=== PATIENT | female | born 1990 | race Caucasian/White ===

== ENCOUNTER 2019-12-02 14:46 | Emergency (ER) | payer OTHER ==
[2019-12-02 16:02] LABS: Absolute Lymphocytes (CBC) 1.1 K/uL (0.7-4.9); Basophils % 0.5 % (0-1.3); Hematocrit 36.3 % (36.0-45.0); Lymphocytes % 25.1 % (15.3-44.8); MPV 7.5 fL (7.6-11.3); RBC Red Blood Cell Count 4.06 M/uL (3.86-4.86)
[2019-12-02] MEDS ORDERED: DIPHENHYDRAMINE 50 MG/ML VIAL ONE (16:07)
[2019-12-02] MEDS ORDERED: FAMOTIDINE 20 MG/2 ML VIAL IV ONE (16:07)
[2019-12-02] MEDS ORDERED: METHYLPREDNISOLONE 125 MG INJ ONE (16:07)
[2019-12-02] MEDS ORDERED: NA CHLORIDE 0.9% 1,000 ML ONE (16:07)
[2019-12-02 16:27] LABS: Potassium 3.5 mmol/L (3.5-5.1)
[2019-12-02 16:46] LABS: Protime INR 1.13
--- NOTE | 2019-12-02 17:05 | ER ---
Nurse's Notes [facility] Name: Rachel Santiago Age: 29 yrs Sex: Female : 1990 Arrival Date: 12/02/2019 Time: 14:47 Bed 14 Private MD: Diagnosis: Rash and other nonspecific skin eruption Presentation: 12/01 14:55 Chief complaint: Chief complaint: Chief complaint: Patient states: "It started with a aa5 possible bite to my left foot and now I got this rash all over my body last night". Pt denies SOB. Pt states "I took clindamycin for my foot today but I already had the rash". Coronavirus screen: Client denies travel out of the [place] in the last 14 days. At this time, the client does not indicate any symptoms associated with coronavirus-19. Ebola Screen: Patient negative for fever greater than or equal to 101.5 degrees Fahrenheit, and additional compatible Ebola Virus Disease symptoms. Onset: The symptoms/episode began/occurred last night. Anaphylaxis evaluation, no signs or symptoms of anaphylaxis were noted. Initial Sepsis Screen: Does the patient meet any 2 criteria? No. Patient's initial sepsis screen is negative. Does the patient have a suspected source of infection? No. Patient's initial sepsis screen is negative. Risk Assessment: Do you want to hurt yourself or someone else? Patient reports no desire to harm self or others. Onset of symptoms was November 2019. 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 - Social history:: Smoking status: Patient denies any tobacco usage or history of. Screenin:05 Abuse screen: Denies threats or abuse. Denies injuries from another. Nutritional ca1 screening: No deficits noted. Tuberculosis screening: No symptoms or risk factors identified. Fall Risk IV access (20 points). Assessment: 15:05 General: Appears in no apparent distress. comfortable, Behavior is calm, cooperative, ca1 appropriate for age. Pain: Complains of pain in chest, right arm, left arm and neck Quality of pain is described as burning, Pain began 1 day ago. Neuro: Level of Consciousness is awake, alert, obeys commands, Oriented to person, place, time, situation. Cardiovascular: Heart tones S1 S2 present Capillary refill < 3 seconds Patient's skin is warm and dry. Respiratory: Airway is patent Respiratory effort is even, unlabored, Respiratory pattern is regular, symmetrical, Breath sounds are clear bilaterally. GI: Abdomen is round non-distended, Bowel sounds present X 4 quads. Abd is soft and non tender X 4 quads. : No signs and/or symptoms were reported regarding the genitourinary system. EENT: No signs and/or symptoms were reported regarding the EENT system. Derm: Skin is intact, is healthy with good turgor, Skin is pink, warm \\T\\ dry. Rash noted that is red, raised, on chest, right arm, left arm, left leg and neck Bruising that is dark purple, on dorsum of left foot. Musculoskeletal: Circulation, motion, and sensation intact. Capillary refill < 3 seconds. 15:30 Reassessment: Dr. Quintana at bedside. ca1 16:14 Reassessment: Patient appears in no apparent distress at this time. Patient and/or ca1 family updated on plan of care and expected duration. Pain level reassessed. Patient is alert, oriented x 3, equal unlabored respirations, skin warm/dry/pink. 16:54 Reassessment: Patient appears in no apparent distress at this time. Patient and/or ca1 family updated on plan of care and expected duration. Pain level reassessed. Patient is alert, oriented x 3, equal unlabored respirations, skin warm/dry/pink. 17:22 Reassessment: Patient appears in no apparent distress at this time. Patient is alert, ca1 oriented x 3, equal unlabored respirations, skin warm/dry/pink. Vital Signs: 14:55 BP 126 / 74; Pulse 119; Resp 20 S; Temp 99.1(O); Pulse Ox 100% on R/A; Weight 63.5 kg aa5 (R); Height 5 ft. 5 in. (165.10 cm) (R); Pain 3/10; 16:00 BP 137 / 80; Pulse 111; Resp 16 S; Pulse Ox 100% on R/A; ca1 16:54 BP 139 / 79; Pulse 105; Resp 15 S; Pulse Ox 100% on R/A; ca1 14:55 Body Mass Index 23.30 (63.50 kg, 165.10 cm) aa5 ED Course: 14:47 Patient arrived in ED. as 14:54 Era Darling FNP-C [facility]. kb 14:54 Duy Quintana MD is Attending Physician. kb 14:54 Arm band placed on. aa5 14:57 Triage completed. aa5 15:05 Melody Shell, SHELLY is Primary Nurse. ca1 15:05 Patient has correct armband on for positive identification. Placed in gown. Bed in low ca1 position. Call light in reach. Side rails up X 1. Pulse ox on. NIBP on. Warm blanket given. 15:45 Initial lab(s) drawn, by me, sent to lab. Inserted saline lock: 20 gauge in right ca1 antecubital area, using aseptic technique. Blood collected. 16:15 No provider procedures requiring assistance completed. ca1 17:23 IV discontinued, intact, bleeding controlled, No redness/swelling at site. Pressure ca1 dressing applied. Administered Medications: 15:47 Drug: NS 0.9% 1000 ml Route: IV; Rate: 1000 ml; Site: right antecubital; ca1 16:56 Follow up: Response: No adverse reaction; IV Status: Completed infusion; IV Intake: ca1 1000ml 15:49 Drug: Pepcid 20 mg Route: IVP; Site: right antecubital; ca1 16:57 Follow up: Response: No adverse reaction ca1 15:52 Drug: SOLU-Medrol 125 mg Route: IVP; Site: right antecubital; ca1 16:57 Follow up: Response: No adverse reaction ca1 15:55 Drug: Benadryl 12.5 mg Route: IVP; Site: right antecubital; ca1 16:57 Follow up: Response: No adverse reaction ca1 Intake: 16:56 IV: 1000ml; Total: 1000ml. ca1 Outcome: 17:05 Discharge ordered by . kb 17:23 Discharged to home ambulatory. ca1 17:23 Condition: stable 17:23 Discharge instructions given to patient, Instructed on discharge instructions, follow up and referral plans. medication usage, Demonstrated understanding of instructions, follow-up care, medications, Prescriptions given X 1. 17:23 Patient left the ED. ca1 Signatures: Era Darling, Viola Linder as Mary Villegas, RN RN aa5 Melody Shell RN RN ca1
--- NOTE | 2019-12-02 17:05 | EDPHYS ---
Physician Documentation [facility] Name: Rachel Santiago Age: 29 yrs Sex: Female : 1990 Arrival Date: 12/02/2019 Time: 14:47 Bed 14 Private MD: ED Physician Duy Quintana HPI: 12/01 17:09 This 29 yrs old Female presents to ER via Ambulatory with complaints of kb Allergic Reaction. 17:09 The patient's rash thought to be caused by insect bite. The rash is located on the body kb diffusely. The rash can be described as macular, papular. Onset: The symptoms/episode began/occurred today. Associated signs and symptoms: Pertinent positives: itching. Severity of symptoms: At their worst the symptoms were moderate in the emergency department the symptoms are unchanged. The patient has not experienced similar symptoms in the past. The patient has been recently seen by a physician:. Pt reports she was bit by a spider yesterday and the area she was bitten has been getting more red and spreading. Today she developed a diffuse rash. States she was started on Clindamycin today, but rash started before her first dose. 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 - Social history:: Smoking status: Patient denies any tobacco usage or history of. ROS: 16:58 Constitutional: Negative for fever, chills, and weight loss, Cardiovascular: Negative kb for chest pain, palpitations, and edema, Respiratory: Negative for shortness of breath, cough, wheezing, and pleuritic chest pain, Abdomen/GI: Negative for abdominal pain, nausea, vomiting, diarrhea, and constipation, MS/Extremity: Negative for injury and deformity, Neuro: Negative for headache, weakness, numbness, tingling, and seizure. 16:58 Skin: Positive for rash, diffusely. Exam: 17:07 Constitutional: This is a well developed, well nourished patient who is awake, alert, kb and in no acute distress. Head/Face: Normocephalic, atraumatic. Chest/axilla: Normal chest wall appearance and motion. Nontender with no deformity. No lesions are appreciated. Cardiovascular: Regular rate and rhythm with a normal S1 and S2. No gallops, murmurs, or rubs. Normal PMI, no JVD. No pulse deficits. Respiratory: Lungs have equal breath sounds bilaterally, clear to auscultation and percussion. No rales, rhonchi or wheezes noted. No increased work of breathing, no retractions or nasal flaring. Abdomen/GI: Soft, non-tender, with normal bowel sounds. No distension or tympany. No guarding or rebound. No evidence of tenderness throughout. MS/ Extremity: Pulses equal, no cyanosis. Neurovascular intact. Full, normal range of motion. Neuro: Awake and alert, GCS 15, oriented to person, place, time, and situation. Cranial nerves II-XII grossly intact. Motor strength 5/5 in all extremities. Sensory grossly intact. Cerebellar exam normal. Normal gait. 17:07 Skin: rash can be described as macular, papular, and is diffusely located. 17:08 Skin: cellulitis, that is moderate, on the dorsum of left foot. kb Vital Signs: 14:55 BP 126 / 74; Pulse 119; Resp 20 S; Temp 99.1(O); Pulse Ox 100% on R/A; Weight 63.5 kg aa5 (R); Height 5 ft. 5 in. (165.10 cm) (R); Pain 3/10; 16:00 BP 137 / 80; Pulse 111; Resp 16 S; Pulse Ox 100% on R/A; ca1 16:54 BP 139 / 79; Pulse 105; Resp 15 S; Pulse Ox 100% on R/A; ca1 14:55 Body Mass Index 23.30 (63.50 kg, 165.10 cm) aa5 MDM: 14:58 Patient medically screened. kb 16:56 Data reviewed: vital signs, nurses notes. Data interpreted: Pulse oximetry: on room air kb is 100 %. Interpretation: normal. Counseling: I had a detailed discussion with the patient and/or guardian regarding: the historical points, exam findings, and any diagnostic results supporting the discharge/admit diagnosis, lab results, the need for outpatient follow up, a family practitioner, to return to the emergency department if symptoms worsen or persist or if there are any questions or concerns that arise at home. 12/01 15:39 Order name: CBC with Diff; Complete Time: 16:09 kb 12/01 15:39 Order name: Basic Metabolic Panel; Complete Time: 16:28 kb 12/01 15:39 Order name: Protime (+inr); Complete Time: 16:53 kb 12/01 15:39 Order name: Ptt, Activated; Complete Time: 16:53 kb 12/01 15:39 Order name: Fibrinogen; Complete Time: 16:53 kb 12/01 15:42 Order name: D-Dimer; Complete Time: 16:11 rn 12/01 15:39 Order name: IV Start; Complete Time: 16:09 kb Administered Medications: 15:47 Drug: NS 0.9% 1000 ml Route: IV; Rate: 1000 ml; Site: right antecubital; ca1 16:56 Follow up: Response: No adverse reaction; IV Status: Completed infusion; IV Intake: ca1 1000ml 15:49 Drug: Pepcid 20 mg Route: IVP; Site: right antecubital; ca1 16:57 Follow up: Response: No adverse reaction ca1 15:52 Drug: SOLU-Medrol 125 mg Route: IVP; Site: right antecubital; ca1 16:57 Follow up: Response: No adverse reaction ca1 15:55 Drug: Benadryl 12.5 mg Route: IVP; Site: right antecubital; ca1 16:57 Follow up: Response: No adverse reaction ca1 Disposition: 17:52 Co-signature as Attending Physician, Duy Quintana MD. rn Disposition: 12/02/19 17:05 Discharged to Home. Impression: Rash and other nonspecific skin eruption. - Condition is Stable. - Discharge Instructions: Insect Bite, [id number], Rash, [id number]. - Prescriptions for Prednisone 20 mg Oral Tablet - take 3 tablet by ORAL route once daily for 5 days Take 60mg (3 tabs) once daily for 5 days, then 40mg (2 tabs) once daily for 3 days, then 20mg (1 tab) once daily for 2 days for a total of 10 days; 23 tablet. - Medication Reconciliation Form, Thank You Letter, Antibiotic Education, Prescription Opioid Use form. - Follow up: Emergency Department; When: As needed; Reason: Worsening of condition. Follow up: Private Physician; When: 2 - 3 days; Reason: Recheck today's complaints, Continuance of care, Re-evaluation by your physician. Signatures: Dispatcher [employer] EDMS Darling Era, ASSISTANT PROFESSOR OF LIFE SCIENCES-C ASSISTANT PROFESSOR OF LIFE SCIENCES-CkDuy Richards MD MD rn Calderon, Audri RN RN aa5 Melody Shell RN RN ca1 Corrections: (The following items were deleted from the chart) 17:23 17:05 12/02/2019 17:05 Discharged to Home. Impression: Rash and other nonspecific skin ca1 eruption. Condition is Stable. Forms are Medication Reconciliation Form, Thank You Letter, Antibiotic Education, Prescription Opioid Use. Follow up: Emergency Department; When: As needed; Reason: Worsening of condition. Follow up: Private Physician; When: 2 - 3 days; Reason: Recheck today's complaints, Continuance of care, Re-evaluation by your physician. kb
[2019-12-02 18:07] VITALS: TEMP 99.1; O2SAT 100
[2019-12-02 18:10] VITALS: BP 139/79
--- OUTSIDE RECORDS SUMMARY | 2019-12-03 05:01 | XMS REPORT | Continuity of Care Document ---
:1990 Author Organization [facility] t Address [address] [place] [address] Care Team Providers Name Role Phone Nisha SCHULZ, A Attending Clinician Unavailable Emir MOTT Attending Clinician Problems This patient has no known problems. Allergies, Adverse Reactions, Alerts This patient has no known allergies or adverse reactions. Medications This patient has no known medications. Procedures This patient has no known procedures. Encounters Start End Encounter Admission Attending Care Care Encounter Source Date/Time Date/Time Type Type Clinicians Facility Department ID 2019-05-10 2019-05-10 Telephone BRYCE Cameron [id number] 00:00:00 00:00:00 [facility] [id number] Surgical [id number] [facility] [id number] [address] 2019-05-09 2019-05-09 Telephone BRYCE Field [id number] 00:00:00 00:00:00 [facility] [id number] Surgical [id number] [facility] [id number] [address] 2019-05-08 2019-05-08 Urgent Emir TNNAVEEN [id number] 16:57:37 18:08:28 Care [facility] [id number] Surgical [id number] [facility] [id number] [address] Results This patient has no known results.
== END 2019-12-02 17:23 | disposition home or self-care (01) ==
LOC: ER 14:46
DX: R21 Rash and other nonspecific skin eruption (principal)
CPT/HCPCS: 96361; 85025; 80048; 36415; 85384; 85610; 85379; 85730; 96375; 96374; 99284; J1200; J7030; J2930